=== PATIENT | male | born 1965 | race Caucasian/White ===

== ENCOUNTER 2016-06-17 11:18 | Emergency (ER) | payer OTHER ==
[~2016-06-17] VITALS: Ht 188 cm; Wt 156.5 kg
--- NOTE | 2016-06-17 12:05 | ED GENERAL ADULT ---
History of Present Illness General Chief Complaint: Fall Stated Complaint: FELL LAST PM, PER PT +HIT HEAD, +LOC FOR 2 MINS Source: patient Exam Limitations: no limitations Vital Signs & Intake/Output Vital Signs & Intake/Output Vital Signs Date Time Temp Pulse Resp B/P Pulse O2 O2 Flow FiO2 Ox Delivery Rate 06/17 1340 97.7 69 20 131/67 94 Room Air 06/17 1310 98 Room Air 06/17 1155 98.6 80 20 162/100 95 Room Air Allergies Coded Allergies: NO KNOWN ALLERGIES (04/13/12) Reconcile Medications Lisinopril 20 MG TABLET 1 TAB PO QPM HEART (Reported) Metformin HCl 500 MG TABLET 1 TAB PO BID DIABETES (Reported) Triage Note: PT FELL BACKWARDS YESTERDAY WHILE MOVING FURNITURE. 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 C/O CHEST PAIN, HEADACHE AND NAUSEA. PT SAW DENTIST FOR BROKEN TOOTH THIS MORNING. Triage Nurses Notes Reviewed? yes Onset: Abrupt Duration: day(s): Timing: recent history HPI: 06/17/16 12:12 pm 51-year-old man presents to the emergency department status post fall. The patient actually fell out of his truck yesterday and hit his head and chipped his tooth. He is also complaining of severe left sided upper rib pain. He has no abdominal pain. No left shoulder pain. The onset of symptoms were abrupt, the duration was yesterday, the severity is significant as his symptoms required him to come to the emergency department for care. On physical exam he does have some soft tissue swelling in his occipital scalp. He has no neck pain or tenderness. He does have left sided chest wall tenderness. There is no pain or tenderness to deep palpation of the left upper quadrant. He saw his dentist today and had his tooth addressed. He has no abdominal pain. He says it was clearly a slip and fall. He did say that he passed out yesterday Past History Travel History Traveled to [place] past 21 day No Medical History Any Pertinent Medical History? see below for history Influenza Vaccine: 12/30/07 Surgical History Surgical History: non-contributory Psychosocial History Who do you live with Spouse Services at Home NONE What is your primary language Danish Family History Hx Contributory? No Review of Systems Review of Systems Constitutional: Denies: fever. EENTM: Denies: visual changes. Respiratory: Denies: short of breath. Cardiovascular: Denies: chest pain (LEFT RIB PAIN). GI: Denies: abdominal pain. Genitourinary: Reports: no symptoms. Musculoskeletal: Reports: see HPI. Skin: Denies: rash. Neurological/Psychological: Reports: headache. Hematologic/Endocrine: Reports: bruising. Immunologic/Allergic: Reports: no symptoms. Physical Exam Physical Exam General Appearance: well developed/nourished, alert, awake, anxious, mild distress Head: atraumatic, normal appearance Eyes: Bilateral: normal appearance, PERRL, EOMI. Ears, Nose, Throat: normal pharynx, normal ENT inspection Neck: normal inspection Respiratory: normal breath sounds, LEFT UPPER RIB CHEST WALL TENDERNESS Cardiovascular: regular rate/rhythm Peripheral Pulses: 4+ radial (R), 4+ radial (L) Gastrointestinal: soft, non-tender Back: normal range of motion Extremities: normal inspection, normal range of motion, no edema Neurologic/Psych: no motor/sensory deficits, awake, alert, oriented x 3 Skin: intact, normal color, warm/dry Core Measures ACS in differential dx? No CVA/TIA Diagnosis: No Severe Sepsis Present: No Septic Shock Present: No Progress Differential Diagnoses I considered the following diagnoses in my evaluation of the patient: [Fracture, intracranial bleed, cervical spine injury, intra-abdominal injury,] Plan of Care: Orders Procedure Date/time Status EKG 06/17 1156 Active Initial ED EKG: none Departure Departure Disposition: HOME OR SELF CARE Condition: Stable Clinical Impression Primary Impression: Rib contusion Secondary Impressions: Head injury Referrals: BROOKE WAKEFIELD MD (PCP/Family) Departure Forms: Customer Survey General Discharge Information Comments 06/17/16 X-rays are negative. CT scan of the head is negative. The patient is comfortable after the Toradol. He was discharged on ibuprofen and was instructed to follow-up with his doctor this week. CT scan of the head was negative Left rib series is negative for fracture or pneumothorax. Critical Care Note Critical Care Note Critical Care Time: non-applicable
[2016-06-17] MEDS ORDERED: LISINOPRIL20 M1 PO (12:16)
[2016-06-17] MEDS ORDERED: METFORMIN HCL500 M3 PO (12:16)
--- NOTE | 2016-06-17 13:11 | RADIOLOGY REPORT ---
EXAMINATION: XR RIBS, LEFT CLINICAL INFORMATION: Fall COMPARISON: None TECHNIQUE: PA view of chest and 6 views of left ribs FINDINGS: The heart is normal in size though partially obscured by the elevated diaphragm. There is poor expansion to both lung bases without evidence for pneumothorax, consolidation or effusion. No evidence for displaced fracture. IMPRESSION: No acute finding. There is poor expansion to the lung bases.
--- NOTE | 2016-06-17 13:14 | CT SCAN REPORT ---
EXAMINATION: CT HEAD WITHOUT CONTRAST CLINICAL INFORMATION: Fall with pain. COMPARISON: None TECHNIQUE: Contiguous axial imaging was performed from the skull base to vertex without intravenous administration of contrast. DLP: 600.71 mGy-cm FINDINGS: There is no evidence of acute intracranial hemorrhage or territorial infarction. No abnormal mass effect or midline shift is seen. Mercado to white matter differentiation is well preserved. No extra-axial fluid collections are identified. The ventricles are normal in size. There is no abnormal attenuation within the brain parenchyma. The osseous structures and soft tissues are normal. The mastoid air cells and visualized portions of the paranasal sinuses are well aerated. IMPRESSION: No acute intracranial pathology.
[2016-06-17 13:40] VITALS: BP 131/67
== END 2016-06-17 13:42 ==
LOC: ERH 11:18
DX: S20.212A Contusion of left front wall of thorax, initial encounter (principal); S09.90XA Unspecified injury of head, initial encounter; W17.89XA Other fall from one level to another, initial encounter; Y93.89 Activity, other specified; Y92.9 Unspecified place or not applicable
CPT/HCPCS: 71100-LT; 93005; 93010; 96372; J1885

== ENCOUNTER 2017-04-07 14:23 | Emergency (ER) | payer OTHER ==
[~2017-04-07] VITALS: Ht 188 cm; Wt 154.2 kg
[~2017-04-07 14:23] MED LIST: ASPIRIN EC81 M1 PO; FUROSEMIDE20 M1 PO; HYDROCODON-ACE1 EAC2 PO; LISINOPRIL20 M1 PO; METFORMIN HCL500 M3 PO
[2017-04-07 14:51] VITALS: BP 155/78
[2017-04-07 15:01] LABS: ABSOLUTE BASOPHIL COUNT 0.1 /CUMM (0.0-0.2); ABSOLUTE EOSINOPHIL COUNT 0.2 /CUMM (0.0-0.7); ABSOLUTE GRANULOCYTE CT 9.4 /CUMM (1.4-6.5); ABSOLUTE LYMPH COUNT 3.3 /CUMM (1.2-3.4); ABSOLUTE MONOCYTE COUNT 1.9 /CUMM (0.10-0.60); BASOPHIL % 0.4 % (0.0-2.0); EOSINOPHIL % 1.2 % (0-5); GRANULOCYTE % 63.3 % (42.2-75.2); HEMATOCRIT 40.1 % (42-52); MEAN CORPUSCULAR HGB 27.7 PG (27.0-31.0); MEAN CORPUSCULAR HGB CONC 32.1 G/DL (33.0-37.0); MEAN CORPUSCULAR VOLUME 86.2 FL (80.0-94.0); MEAN PLATELET VOLUME 9.9 FL (7.4-10.4); PLATELET COUNT 409 /CUMM (130-400); RBC DISTRIBUTION WIDTH 14.8 % (11.5-14.5); RED BLOOD CELL CT 4.66 /CUMM (4.70-6.10); WHITE BLOOD CELL COUNT 14.8 /CUMM (4.8-10.8)
== END 2017-04-07 17:21 | disposition admitted as inpatient to this hospital (09) ==
LOC: ERH 14:23
PROVIDERS: Physician Assistant Medical
DX: R07.9 Chest pain, unspecified (principal)
CPT/HCPCS: 93005; 93010; 99281